=== PATIENT | male | born 1935 | race Caucasian/White ===

== ENCOUNTER 2023-05-26 06:05 | Day surgery (SDC) | payer MEDICARE, BC, SELFPAY ==
--- NOTE | 2023-04-27 12:34 | CM ---
Addendum entered by Kira Nayak 04/27/23 13:04:
Spoke again with . [facility] is unable to see patient at home. selects [facility]. Face sheet faxed to [facility].
Original Note:
Patient is scheduled for an elective R TKR on 05/26/23- he is a same day patient. Spoke with patient and his prior to surgery. Introduced role of Orthopedic Navigator. Patient reports that he lives with his (who is a nurse for [facility]) in a
one story home. There are two steps to enter. He currently functions independently and uses either a cane or rolling walker. He has no other DME. He has never had VN services. PCP is Kristal Cheng.
Discussed orthopedic program and post surgical plans. Reviewed that he will have VN services initially (medicare.gov website and ratings reviewed) and will then start outpatient PT. Patient selects [facility] for his home care needs and will go to
[facility] for outpatient PT.
Patient is in agreement with plan and confirms that she will be home with him.
Patient will complete online education.
Plan: Orthopedic Navigator will remain available to assist with the care of patient and will reassess discharge needs after surgery.
[2023-05-04 08:45] VITALS: BMI 33.8
[2023-05-04 12:48] LABS: Glycohemoglobin (HgbA1c) 6.8 % (4.0-5.6)
[2023-05-04 14:39] VITALS: BMI 33.8
[2023-05-26] VITALS (12 sets, daily range): BP systolic 108–156; BP diastolic 55–82; PULSE 70; O2SAT 99; BMI 33.8
[2023-05-26] MEDS: TYLENOL 650 MG PO (07:08)
[2023-05-26] MEDS: CELEBREX 200 MG PO (07:08)
[2023-05-26] MEDS: BACTROBAN NASAL 1 GRAM NASAL (07:17)
[2023-05-26 07:20] LABS: Glucose - Point of Care 120 mg/dl (70-99)
[2023-05-26] MEDS: NORMOSOL-R 1000 IV (07:30)
[2023-05-26 09:04] LABS: Glucose - Point of Care 124 mg/dl (70-99)
[2023-05-26] MEDS: ROXICODONE 5 MG PO ×2 (10:05→11:42)
--- NOTE | 2023-05-26 10:38 | PTCARENOTE ---
Addendum 0915..Patient reports abdominal pressure. Post spinal, last void 0400, bladder scan indicates 660 ml retention. Straight cath per protocol, Dr Peterson aware. Tolerated procedure well.
[2023-05-26 10:48] LABS: Glucose - Point of Care 190 mg/dl (70-99)
[2023-05-26] MEDS: ANCEF 5 IV (11:50)
--- NOTE | 2023-05-26 13:06 | PTCARENOTE ---
Patient ambulated with PT. PT cleared patient to leave. Patient voided approximatley 50 ml of urine into the urinal and small amount into the toilet. Dr. Francis made aware and patient was cleared to leave by Dr. Francis. Patient and his felt
ready for patient to be d/c. Patient was unable to do the curbstep and refused with RN and PT. Patient states at home that his steps are a lot smaller and not as high. Also he stated that he has rails and bars that he can grab onto to get into the
house. Will monitor patient.
--- NOTE | 2023-05-26 13:09 | CM ---
Patient had planned R TKR today. Met with patient and his at bedside to review discharge plans. Patient will be returning home today with services through [facility] home care. On Wednesday 05/31, patient will start outpatient PT at [facility]. Reviewed
MD follow up in two weeks and patient is aware of need to schedule appointment.
Patient has his rolling walker here with him.
PT and [facility] were kept updated as to progress and discharge plans.
== END 2023-05-26 13:06 | disposition home health service (06) ==
LOC: SDS 06:05
PROVIDERS: ATTENDING PHYSICIAN Orthopaedic Surgery; FAMILY PHYSICIAN Internal Medicine; REFERRING PHYSICIAN Physician Assistant
DX: M17.11 Unilateral primary osteoarthritis, right knee (principal)
CPT/HCPCS: 27447; 36415; 73560; 82962; 83036; 87070; 97161; 97530; C1713; C1776